=== PATIENT | female | born 1935 | race Caucasian/White ===

== ENCOUNTER 2018-04-12 00:26 | Outpatient (CLI) | payer MEDICARE ==
[2018-04-12 09:48] LABS: ALT (SGPT) 9 U/L (8-55); AST (SGOT) 17 U/L (5-34); Albumin 4.2 g/dL (3.4-4.8); Alkaline Phosphatase 68 U/L (40-150); Anion Gap 12 mmol/L (10-20); BUN (Urea Nitrogen) 27 mg/dL (9.8-20.1); Bilirubin, Direct 0.2 mg/dL (0.1-0.3); Bilirubin, Total 0.6 mg/dL (0.2-1.2); Calc. Creatinine Clearance 0 mL/min (70-130); Calcium 9.9 mg/dL (7.8-10.44); Carbon Dioxide 24 mmol/L (23-31); Chloride 108 mmol/L (98-107); Estimated GFR-MDRD 44; Globulin 2.8 g/dL (2.4-3.5); Glucose 108 mg/dL (83-110); Potassium 4.4 mmol/L (3.5-5.1); Sodium 140 mmol/L (136-145)
--- NOTE | 2018-04-12 17:06 | EKG ---
Test Reason : Blood Pressure : / mmHG Vent. Rate : 077 BPM Atrial Rate : 077 BPM P-R Int : 170 ms QRS Dur : 084 ms QT Int : 382 ms P-R-T Axes : 080 065 069 degrees QTc Int : 432 ms Normal sinus rhythm Normal ECG No previous ECGs available Confirmed by VINITA NEWBERRY ([id number]) on 04/12/2018 5:06:23 PM Referred By: RHOITH Confirmed By:VINITA NEWBERRY
== END 2018-04-12 00:27 | disposition home or self-care (01) ==
LOC: LABBT 00:26
PROVIDERS: ATTEND Internal Medicine Cardiovascular Disease
DX: Z01.818 Encounter for other preprocedural examination (principal); R94.39 Abnormal result of other cardiovascular function study
CPT/HCPCS: 80053; 80076; 93005; 93010

== ENCOUNTER 2018-04-13 05:57 | Day surgery (SDC) | payer MEDICARE ==
[2018-04-12 08:19] VITALS: BMI 18.1
[2018-04-13] MEDS ORDERED: Diazepam 5 MG TAB ONE (06:36)
[2018-04-13 06:56] LABS: #Eosinphils 0.2 thou/uL (0.0-0.7); #Lymphocytes 1.4 thou/uL (1.20-3.40); #Monocytes 0.5 thou/uL (0.11-0.59); #Neutrophils 2.6 thou/uL (1.40-6.50); %Basophils 0.6 % (0.0-1.0); %Eosinophils 3.6 % (0.0-10.0); %Lymphocytes 29.7 % (21.0-51.0); %Monocytes 10.2 % (0.0-10.0); %Neutrophils 55.9 % (42.0-75.0); Hemoglobin 10.7 g/dL (12.0-16.0); Mean Corpuscular HGB CONC 34.7 g/dL (32.0-36.0); Mean Corpuscular Hemoglobin 32.2 pg (27.0-31.0); Mean Corpuscular Volume 92.8 fL (78.0-98.0); Mean Platelet Volume 7.3 fL (7.4-10.4); Platelet Count 213 thou/uL (130-400); RBC Distribution Width 11.3 % (11.5-14.5); Red Blood Cell (RBC) Count 3.32 mill/uL (4.20-5.40); White Blood Cell (WBC) Count 4.6 thou/uL (4.8-10.8)
[2018-04-13 07:02] LABS: Cardiac Risk 2.7 (Less than 4.5)
[2018-04-13] MEDS ORDERED: Midazolam HCl 2 mg/2 ml Vial ONE (08:35)
[2018-04-13] MEDS ORDERED: Iopamidol 370 76% 100 ML VIAL ONE (09:32)
[2018-04-13] MEDS ORDERED: Acetaminophen/Codeine 30-300mg Tablet ONE ×2 (09:43→10:34)
== END 2018-04-13 13:50 | disposition home or self-care (01) ==
LOC: CCL 05:57
PROVIDERS: ATTEND Internal Medicine Cardiovascular Disease
PROC: 4A023N7 Measurement of Cardiac Sampling and Pressure, Left Heart, Percutaneous Approach (ICD-10-PCS; principal; 2018-04-13)
PROC: B2111ZZ Fluoroscopy of Multiple Coronary Arteries using Low Osmolar Contrast (ICD-10-PCS; 2018-04-13)
DX: I25.10 Atherosclerotic heart disease of native coronary artery without angina pectoris (principal); Z79.82 Long term (current) use of aspirin; Z79.899 Other long term (current) drug therapy
CPT/HCPCS: 36415; 80061; 85025; 93458; 99152; C1769; J1644; J2250; Q9967

== ENCOUNTER 2019-07-26 10:02 | Outpatient (CLI) | payer MEDICARE, OTHER ==
--- NOTE | 2019-07-26 11:37 | RAD ---
THORACOLUMBAR SPINE 2 VIEWS: Date: 07/18/2019 HISTORY: Low back pain, scoliosis. FINDINGS: S-shaped scoliosis. Severe multilevel disc osteophytosis and facet arthrosis. 38 degree levoscoliosis of the lumbar vertebral column. 19 degree dextroscoliosis of the lower thoracic vertebral column. IMPRESSION: 1. Significant scoliosis as above. 2. Severe spondylosis. POS: [facility]
== END 2019-07-26 10:03 | disposition home or self-care (01) ==
LOC: SCSRAD 10:02
PROVIDERS: ATTEND Orthopaedic Surgery Hand Surgery
DX: M54.5 Low back pain (principal); M41.9 Scoliosis, unspecified; M47.815 Spondylosis without myelopathy or radiculopathy, thoracolumbar region
CPT/HCPCS: 72080

== ENCOUNTER 2019-10-29 06:10 | Outpatient (CLI) | payer MEDICARE, OTHER ==
[2019-10-29 14:23] LABS: #Lymphocytes 0.9 thou/uL (1.20-3.40); #Monocytes 0.2 thou/uL (0.11-0.59); #Neutrophils 4.5 thou/uL (1.40-6.50); %Basophils 0.1 % (0.0-1.0); %Eosinophils 0.5 % (0.0-10.0); %Monocytes 3.4 % (0.0-10.0); Hemoglobin 11.5 g/dL (12.0-16.0); Mean Corpuscular Hemoglobin 32.8 pg (27.0-31.0); Mean Corpuscular Volume 96.4 fL (78.0-98.0); Mean Platelet Volume 7.8 fL (7.4-10.4); Platelet Count 229 thou/uL (130-400); RBC Distribution Width 11.5 % (11.5-14.5); Red Blood Cell (RBC) Count 3.52 mill/uL (4.20-5.40); White Blood Cell (WBC) Count 5.7 thou/uL (4.8-10.8)
[2019-10-29 14:47] LABS: Bacteria/HPF 4+ HPF (None Seen); Bilirubin Negative (Negative); Blood, Urine Negative (Negative); Clarity Clear (Clear); Glucose, Urine (Dipstick) Normal (Negative); Ketone, Urine Negative (Negative); Leukocyte Negative Leu/uL (Negative); Nitrite 2+ (Negative); Protein, Urine (Dipstick) Negative (Neg-Trace); RBC/HPF 0-3 HPF (0-3); Specific Gravity, Urine 1.013 (1.002-1.036); Urobilinogen Normal mg/dL (Less than 2); WBC/HPF 0-3 HPF (0-3); pH, Urine 5.5 (5.0-9.0)
[2019-10-29 14:55] LABS: Anion Gap 17 mmol/L (10-20); BUN (Urea Nitrogen) 43 mg/dL (9.8-20.1); Calc. Creatinine Clearance 0 mL/min (70-130); Calcium 9.5 mg/dL (7.8-10.44); Carbon Dioxide 22 mmol/L (23-31); Chloride 106 mmol/L (98-107); Estimated GFR-MDRD 38; Glucose 121 mg/dL (83-110); Potassium 4.5 mmol/L (3.5-5.1); Sodium 140 mmol/L (136-145)
[2019-10-30 13:23] LABS: SARS-CoV-2 MS2 Positive; SARS-CoV-2 N Gene Negative; SARS-CoV-2 S Gene Negative; SARS-CoV-2 by NAA Not Detected (NotDetected); SARS-CoV-2 orf1ab Negative
== END 2019-10-29 06:11 | disposition home or self-care (01) ==
LOC: LABBT 06:10
PROVIDERS: ATTEND Orthopaedic Surgery Hand Surgery
DX: Z01.818 Encounter for other preprocedural examination (principal); Z20.828 Contact with and (suspected) exposure to other viral communicable diseases; M19.042 Primary osteoarthritis, left hand
CPT/HCPCS: 80048; 81001; 85025; 93005; U0003; 87635; 93010

== ENCOUNTER 2019-11-02 05:44 | Inpatient (IN) | payer MEDICARE, OTHER ==
[2019-10-30 14:09] VITALS: BMI 15.6
[2019-11-02] MEDS ORDERED: Midazolam HCl 2 mg/2 ml Vial ONE (06:38)
[2019-11-02] MEDS ORDERED: Fentanyl 100 MCG/2 ML VIAL ONE ×2 (06:38→07:25)
[2019-11-02] MEDS ORDERED: Sodium Chloride 0.9% 10 ML ONE (06:41)
[2019-11-02] MEDS ORDERED: Bacitracin Zinc Ointment 30 gm TUBE ONE (06:41)
[2019-11-02] MEDS ORDERED: Bupivacaine PF 0.5% 30 ML VIAL ONE (06:41)
[2019-11-02] MEDS ORDERED: Betamet Acet/Betamet Na Ph 30 MG/5 ML VIAL ONE (06:41)
[2019-11-02] MEDS ORDERED: Morphine 2 MG/ML VIAL SLOW IVP PRN (07:24)
[2019-11-02] MEDS ORDERED: Ondansetron PF 4 MG/2 ML Vial SLOW IVP PRN (07:24)
[2019-11-02] MEDS ORDERED: Promethazine HCl 25 MG/ML VIAL IM PRN ×2 (07:24→12:49)
[2019-11-02] MEDS ORDERED: HYDROcodone/Acetaminophen 10/325 mg Tablet PO PRN (07:24)
[2019-11-02] MEDS ORDERED: Milk Of Magnesia 30 ML UDCUP PO PRN (07:24)
[2019-11-02] MEDS ORDERED: PHARMACY TO RENALLY ADJUST ABX FS SCH (07:30)
[2019-11-02] MEDS ORDERED: TETANUS AND DIPHTHERIA TOX/PF 0.5 ML DISP.SYRIN IM SCH (07:30)
[2019-11-02] MEDS ORDERED: Ondansetron HCl/PF 4 MG/2 ML Vial IVP PRN (12:49)
[2019-11-02] MEDS ORDERED: Promethazine HCl 25 MG/ML VIAL SLOW IVP PRN (12:49)
--- NOTE | 2019-11-02 12:55 | RAD ---
EXAM: XR Hand Lt 2 View PROVIDED CLINICAL HISTORY: Arthroplasty COMPARISON: None FINDINGS: Multiple spot fluoroscopic images of the left hand were obtained by Dr. Squires during the course of MCP arthroplasty. IMPRESSION: As above.
[2019-11-02] MEDS ORDERED: EPHEDRINE 25 MG/5 ML SYRINGE ONE (13:58)
[2019-11-02] MEDS ORDERED: Bupivacaine HCl 0.5%/Epinephrine 1:200,000/PF 30 ml Vial ONE (13:58)
[2019-11-02] MEDS ORDERED: PHENYLEPHRINE-NS 100 MCG/ML 10 ML SYRINGE ONE (13:58)
[2019-11-02] MEDS ORDERED: PROPOFOL 200 MG/20 ML VIAL ONE (13:58)
[2019-11-02] MEDS: Aspirin 81 mg Enteric Coated Tablet PO SCH ×2 (14:25→21:09)
[2019-11-02] MEDS: traMADol HCl 50 MG TAB PO PRN (18:36)
[2019-11-02] MEDS ORDERED: Rosuvastatin 10 MG TAB PO SCH (21:00)
[2019-11-02] MEDS: Cholecalciferol 1,000 UNITS (25 MCG) TAB PO SCH (21:11)
[2019-11-03] MEDS: traMADol HCl 50 MG TAB PO PRN ×2 (02:41→09:38)
[2019-11-03 05:30] LABS: #Eosinphils 0.1 thou/uL (0.0-0.7); #Lymphocytes 0.9 thou/uL (1.20-3.40); #Monocytes 0.8 thou/uL (0.11-0.59); %Basophils 0.2 % (0.0-1.0); %Eosinophils 0.9 % (0.0-10.0); %Lymphocytes 13.4 % (21.0-51.0); %Monocytes 11.2 % (0.0-10.0); %Neutrophils 74.3 % (42.0-75.0); Hemoglobin 10.6 g/dL (12.0-16.0); Mean Corpuscular HGB CONC 35.1 g/dL (32.0-36.0); Mean Corpuscular Hemoglobin 34.5 pg (27.0-31.0); Mean Corpuscular Volume 98.1 fL (78.0-98.0); Mean Platelet Volume 7.3 fL (7.4-10.4); Platelet Count 186 thou/uL (130-400); RBC Distribution Width 11.4 % (11.5-14.5); Red Blood Cell (RBC) Count 3.06 mill/uL (4.20-5.40); White Blood Cell (WBC) Count 6.8 thou/uL (4.8-10.8)
[2019-11-03] MEDS ORDERED: predniSONE 5 MG TAB PO SCH (08:00)
[2019-11-03] MEDS ORDERED: Lidocaine 5% Patch TD SCH (09:00)
[2019-11-03] MEDS: Aspirin 81 mg Enteric Coated Tablet PO SCH (09:36)
[2019-11-03] MEDS: Cholecalciferol 1,000 UNITS (25 MCG) TAB PO SCH (09:37)
[2019-11-03 15:37] VITALS: BP 118/69; TEMP 98.4
[2019-11-03] MEDS ORDERED: Lidocaine Patch Removal 1 EACH TOP SCH (21:00)
--- NOTE | 2019-11-04 13:20 | OP ---
DATE OF PROCEDURE: 11/02/2019 PREOPERATIVE DIAGNOSES: Left small finger, ring finger, middle finger, index finger at the metacarpophalangeal joint with the following deformities, 1. 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 2. Metacarpophalangeal joint dislocation, palmar and ulnar. 3. Subluxation of extensor tendon ulnarly with locked joint in flexion. 4. Tight ulnar collateral ligament and ulnar capsule. 5. Tight ulnar intrinsics. 6. Lax radial collateral ligament. 7. Lax radial intrinsics and capsule. POSTOPERATIVE DIAGNOSES: Left small finger, ring finger, middle finger, index finger at the metacarpophalangeal joint with the following deformities, 1. 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 2. Metacarpophalangeal joint dislocation, palmar and ulnar. 3. Subluxation of extensor tendon ulnarly with locked joint in flexion. 4. Tight ulnar collateral ligament and ulnar capsule. 5. Tight ulnar intrinsics. 6. Lax radial collateral ligament. 7. Lax radial intrinsics and capsule. PROCEDURES PERFORMED: 1. Ulnar intrinsic release. 2. Volar capsulectomy, metacarpophalangeal joint. 3. Radial collateral ligament reconstruction. 4. Extensor tendon and mechanism along with extensor moreno centralization. 5. Metacarpophalangeal joint silicone arthroplasty using Saeed Yoandy [place] implants. 6. Metacarpophalangeal joint silastic arthroplasty, Saeed Pelliano [place] implant. 7. C-arm supervision. All six of the procedures took place in sequential order at the index finger, middle finger, ring finger, and small finger with the sizes being Saeed Yoandy [place] silastic implant, size 4 index, 5 middle finger, 4 ring finger, and 3 small finger. Each finger had all six performed including C-arm for each finger. SPECIMEN REMOVED: The head of metacarpals not sent to the lab. ESTIMATED BLOOD LOSS: 25 mL. TOURNIQUET TIME: 127 minutes elevated, 45 minutes down, and 51 minutes up, all at 250 mmHg pressure. INDICATIONS FOR PROCEDURE: The patient had dislocated metacarpophalangeal joints, tight ulnar intrinsics, subluxation of the central slip and dislocations of the extensor moreno ulnarly as well as the erosive osteoarthritis. She failed conservative treatment. Indeed, in the office, it was difficult to even get the small, ring and middle finger to extend passively. DESCRIPTION OF PROCEDURE: After successful general endotracheal anesthesia, the limb was prepped and draped, it was the left upper extremity. The patient already had blocks. We did not augment this with anesthetic agent because she had an excellent block clinically. We then outlined longitudinal incisions with the index finger being slightly curved radially at the prominence of metacarpophalangeal head and the middle finger being curved slightly radially as well, while the ring finger was direct dorsal and the small finger was curved slightly ulnarly from the dorsal side. We first approached the index finger and carried the incision through skin and subcutaneous tissue. We quickly found the dislocated extensor mechanism, released it completely with the release of the tight extensor mechanism, and an ulnar intrinsic release all the way to the level of the mid proximal phalanx. We then visualized the radial side, which was lax of the proximal intrinsics as well as the extensor moreno, incised this approximately 3 or 4 mm from the extensor tendon radial aspect, made sure we had enough ulnar release to centralize the tendon manually, and then tagged the extensor mechanism for later closure on both sides with advancement in [id number] manner. We released the capsule completely until we could see the reflection of the collateral ligaments. We released the tight capsule on the ulnar side as well as prepared radial side. We then brought a sagittal saw onto the field, made a shotgun flexion of the metacarpophalangeal joint. It was here we saw an 80% erosion of the metacarpal head and flattening with erosive changes of the base of the proximal phalanx. We made the standard distal and then deep palmar cut of the metacarpal head and then at the base of the proximal phalanx, made a 1 mm cut with sagittal saw to remove chondral bone. opened the canal with a maty and began with our broaching. The broach was found on the C-arm being in central position for both the distal and proximal aspect of the joint broaching, we began broaching with a two proximal and a two distal, which had excellent fit with room to spare and had no violation of cortex by clinical or by radiographic assessment. We then used a 3 proximal and then a 3 distal area interosseous broach and then sequentially 4 until we found that the 4 had slight difficulty in chatter completely being seated, so we knew this would be the appropriate size. We completed the burring of the open space proximally to get the 3 and the size 4 to fit, trialed with a size 4 and found an excellent fit. We then tagged the collateral ligament on the radial side with [place] running 4-0 Prolene suture, drilled a hole on the radial side, shortened the radial collateral and then passed the Prolene through this and at this point with the MP joint very freely , we were able to obtain good purchase of this reconstruction. Before we tied this, however, we performed a release with the tenotomy scissors and a small amount of [place] blade of the entire volar capsular integrity and the volar plate was loose and no longer deformity . Since the 4 Saeed Yoandy [place] silastic implant fit in appropriate orientation, with a trial, we then took the final components, soaked 1 minute in normal saline and placed it in the area of the index finger MP joint arthroplasty bony cuts and it fit without abnormality. We then brought the finger into 0 extension and saw that there was appropriate tension with no instability. At this point, we completed the arthroplasty here. We now closed the capsule loosely with 3-0 Vicryl undyed in a simple pattern. We performed the centralization of the extensor tendon using six 4-0 Prolene, RB-1 needle, performed in a [id number] closure after removing some of the redundant tissue longitudinally in this radial side setup. We then tied these, flexed the joint to 90 degrees, saw the flexor tendon was intact with tenodesis even after releasing the volar capsule, and could have proceeded with skin closure at this point, but we knew we had to perform the other three digits. We then performed a mirror image procedure in the mirror image steps as listed above until we had both replaced with a size 5 for the MP joint of the middle finger, a size 4 for the MP joint of the ring finger, and a size 3 for the MP joint of the small finger. All were in balance nearly perfectly and there was no evidence of anesthetic or operative complication. Tourniquet had been reinflated between the ring finger and the small finger, that was after 45 minutes of being down and this was plenty of time for appropriate surgical steps. Tourniquet was finally released, we obtained hemostasis, we tied all the extensor reconstructions, and finished the closure as per the ring finger. Bulky dressing applied along with a splint and the patient left the operating room without evidence of anesthetic or operative complication. Job ID: [id number]
== END 2019-11-03 15:50 | disposition home or self-care (01) | DRG 506 ==
LOC: SDC 05:44 → EEVIPCON 07:34 → SURG A 07:34
PROVIDERS: ADMIT Orthopaedic Surgery Hand Surgery; ATTEND Orthopaedic Surgery Hand Surgery
PROC: 0RRV0JZ Replacement of Left Metacarpophalangeal Joint with Synthetic Substitute, Open Approach (ICD-10-PCS; principal; 2019-11-02)
PROC: 0RBV0ZZ Excision of Left Metacarpophalangeal Joint, Open Approach (ICD-10-PCS; 2019-11-02)
PROC: 01N40ZZ Release Ulnar Nerve, Open Approach (ICD-10-PCS; 2019-11-02)
DX: M15.4 Erosive (osteo)arthritis (principal); S63.268A Dislocation of metacarpophalangeal joint of other finger, initial encounter; J44.9 Chronic obstructive pulmonary disease, unspecified; E78.5 Hyperlipidemia, unspecified; S63.213A Subluxation of metacarpophalangeal joint of left middle finger, initial encounter; S63.217A Subluxation of metacarpophalangeal joint of left little finger, initial encounter; X58.XXXA Exposure to other specified factors, initial encounter; M20.092 Other deformity of left finger(s); Z98.49 Cataract extraction status, unspecified eye; Z79.899 Other long term (current) drug therapy; Z79.82 Long term (current) use of aspirin; Z79.52 Long term (current) use of systemic steroids
CPT/HCPCS: 36415; 76000; 85025; C1776; J0670; J0690; J0702; J2250; J2405; J2704; J3010; J3490; J7512; S0020

== ENCOUNTER 2019-12-12 12:58 | Emergency (ER) | payer MEDICARE ==
[2019-12-12 15:57] LABS: #Eosinphils 0.1 thou/uL (0.0-0.7); #Lymphocytes 1.3 thou/uL (1.20-3.40); %Basophils 0.1 % (0.0-1.0); %Lymphocytes 12.3 % (21.0-51.0); %Monocytes 9.6 % (0.0-10.0); %Neutrophils 76.9 % (42.0-75.0); Hemoglobin 10.8 g/dL (12.0-16.0); Mean Corpuscular HGB CONC 35.6 g/dL (32.0-36.0); Mean Corpuscular Volume 95.6 fL (78.0-98.0); Mean Platelet Volume 7.1 fL (7.4-10.4); Platelet Count 239 thou/uL (130-400); RBC Distribution Width 11.6 % (11.5-14.5); Red Blood Cell (RBC) Count 3.16 mill/uL (4.20-5.40); White Blood Cell (WBC) Count 10.4 thou/uL (4.8-10.8)
[2019-12-12 16:17] LABS: ALT (SGPT) 12 U/L (8-55); AST (SGOT) 14 U/L (5-34); Albumin 3.5 g/dL (3.4-4.8); Alkaline Phosphatase 59 U/L (40-110); Anion Gap 14 mmol/L (10-20); BUN (Urea Nitrogen) 23 mg/dL (9.8-20.1); Calc. Creatinine Clearance 0 mL/min (70-130); Calcium 8.6 mg/dL (7.8-10.44); Carbon Dioxide 22 mmol/L (23-31); Chloride 105 mmol/L (98-107); Estimated GFR-MDRD 44; Globulin 2.8 g/dL (2.4-3.5); Glucose 93 mg/dL (83-110); Lipase 4 U/L (8-78); Potassium 4.1 mmol/L (3.5-5.1); Protein, Total 6.3 g/dL (6.0-8.3); Sodium 137 mmol/L (136-145)
[2019-12-12 16:24] LABS: Bilirubin, Total 0.3 mg/dL (0.2-1.2)
[2019-12-12] MEDS ORDERED: Ondansetron PF 4 MG/2 ML Vial ONE (16:37)
[2019-12-12] MEDS ORDERED: Morphine 4 MG/ML VIAL ONE (16:37)
--- NOTE | 2019-12-15 16:29 | EKG ---
Test Reason : Blood Pressure : / mmHG Vent. Rate : 074 BPM Atrial Rate : 074 BPM P-R Int : 162 ms QRS Dur : 086 ms QT Int : 378 ms P-R-T Axes : 104 061 066 degrees QTc Int : 419 ms Sinus rhythm with Premature atrial complexes Otherwise normal ECG Confirmed by STEFFI COLE DO ([id number]), communications editor CECE VYAS ([id number]) on 12/15/2019 4:29:15 PM Referred By: Confirmed By:STEFFI CLOE DO
== END 2019-12-12 17:10 | disposition home or self-care (01) ==
LOC: ERS 12:58
DX: R19.7 Diarrhea, unspecified (principal); M54.9 Dorsalgia, unspecified
CPT/HCPCS: 80053; 83690; 84484; 85025; 93005; 96374; 96375; J2270; J2405

== ENCOUNTER 2019-12-15 08:48 | Inpatient (IN) | payer MEDICARE, OTHER ==
[2019-12-15] MEDS ORDERED: Acetaminophen 500 MG TAB ONE (09:30)
[2019-12-15 09:57] LABS: Bacteria/HPF 4+ HPF (None Seen); Bilirubin Negative (Negative); Blood, Urine 1+ (Negative); Glucose, Urine (Dipstick) Normal (Negative); Ketone, Urine Negative (Negative); Leukocyte Negative Leu/uL (Negative); Nitrite Negative (Negative); Protein, Urine (Dipstick) 30 mg/dL (Neg-Trace); RBC/HPF 0-3 HPF (0-3); Specific Gravity, Urine 1.021 (1.002-1.036); Squamous Epithelial None Seen HPF (0-3); Urobilinogen Normal mg/dL (Less than 2); WBC/HPF 0-3 HPF (0-3); pH, Urine 5.5 (5.0-9.0)
[2019-12-15 10:02] LABS: Clarity Hazy (Clear)
--- NOTE | 2019-12-15 10:05 | RAD ---
EXAM: Chest one view: HISTORY: Tachycardia COMPARISON: 12/14/2019 FINDINGS: Stable appearing chronic changes bilaterally. Heart size: Within normal limits. Lungs: Clear of acute process. No evidence for confluent lobar pneumonia, significant pleural effusion, acute edema, or pneumothorax , or other significant acute process. IMPRESSION: No significant acute intrathoracic disease. Atherosclerosis of the aorta.
[2019-12-15 10:42] LABS: Band 9 % (5-11); Hemoglobin 9.9 g/dL (12.0-16.0); Lymphocytes 2 % (21-51); MDiff Complete? YES; Mean Corpuscular HGB CONC 35.8 g/dL (32.0-36.0); Mean Corpuscular Hemoglobin 34.5 pg (27.0-31.0); Mean Corpuscular Volume 96.3 fL (78.0-98.0); Mean Platelet Volume 6.8 fL (7.4-10.4); Monocytes 2 % (0-10); Neutrophil 87 % (42-75); Platelet Count 251 thou/uL (130-400); RBC Distribution Width 11.5 % (11.5-14.5); Red Blood Cell (RBC) Count 2.86 mill/uL (4.20-5.40); White Blood Cell (WBC) Count 22.9 thou/uL (4.8-10.8)
[2019-12-15] MEDS ORDERED: metroNIDAZOLE 500 MG/100 ML BAG ONE (10:44)
[2019-12-15] MEDS ORDERED: Cefepime 2 GM VIAL ONE (10:44)
[2019-12-15 10:46] LABS: ALT (SGPT) 10 U/L (8-55); AST (SGOT) 10 U/L (5-34); Albumin 2.6 g/dL (3.4-4.8); Alkaline Phosphatase 62 U/L (40-110); Anion Gap 13 mmol/L (10-20); BUN (Urea Nitrogen) 20 mg/dL (9.8-20.1); Bilirubin, Total 0.6 mg/dL (0.2-1.2); Calc. Creatinine Clearance 0 mL/min (70-130); Calcium 7.4 mg/dL (7.8-10.44); Carbon Dioxide 20 mmol/L (23-31); Chloride 105 mmol/L (98-107); Estimated GFR-MDRD 54; Globulin 2.1 g/dL (2.4-3.5); Glucose 108 mg/dL (83-110); Lipase Less than 4 U/L (8-78); Potassium 4.1 mmol/L (3.5-5.1); Protein, Total 4.7 g/dL (6.0-8.3); Sodium 134 mmol/L (136-145)
[2019-12-15 11:07] LABS: CKMB 2.9 ng/mL (0-6.6)
--- NOTE | 2019-12-15 12:02 | CT ---
EXAM: Abdomen and pelvic CT scan with contrast: HISTORY: Diarrhea abdominal distention COMPARISON: None FINDINGS: Lungs:Small bilateral pleural effusions as well as bilateral pleural-based linear parenchymal changes . Liver: Evidence for minimal periportal edema. Gallbladder:Multiple gallstones without overt gallbladder wall thickening or focal pericholecystic fa t stranding. Common bile duct:Dilated common bile duct at 1.1 cm without significant intrahepatic ductal dilatatio n. Pancreas:Minimal pancreatic duct dilatation. Spleen:Unremarkable. Adrenal glands:Unremarkable. Kidneys:No evidence for renal calculus or obstruction. Evidence for bilateral renal cysts. Very severe diffuse colonic wall thickening and edematous changes throughout the entire colon from re ctum to cecum evidence for nonspecific diffuse colitis. Aorta:No evidence for aortic aneurysm. Spine:No significant acute process. No CT evidence for acute appendicitis. The urinary bladder is unremarkable. Reproductive system:Unremarkable as visualized. Hernias:None Fairly extensive ascites and intraperitoneal fluid throughout the abdomen and pelvis. IMPRESSION: Evidence for severe diffuse colonic wall thickening and edematous changes of the entire colon from re ctum to cecum certainly raising concern for the possibility of acute diffuse colitis. Moderate free intraperitoneal fluid. Cholelithiasis without acute cholecystitis. Minimal dilatation of the common bile duct and pancreatic duct. Minimal hepatic periportal edema Other findings as above..
[2019-12-15] MEDS ORDERED: Aspirin 325 MG TAB ONE (12:17)
--- NOTE | 2019-12-15 13:06 | PDOC.HHP ---
Hospitalist HPI - History of Present Illness Persistent diarrhea History of Present Illness: This is an 84-year-old female patient with a history of chronic back pain secondary to osteoarthritis, recent surgery on her knuckles, atrial fibrillation, who presents with persistent diarrhea and abdominal pain for 2 weeks. Of note she was in the ED a couple of days ago for diarrhea and back pain and was discharged. She had surgery on her left knuckles on 11/02/2019 on account of erosive osteoarthritis. Daughter notes she received antibiotics but is unable to tell the name. After discharge however 2 weeks ago she did develop and diarrhea with abdominal pain and increasing weakness. She denied any associated fever nausea vomiting. Her daughter went to pick him up from [place] to stay with her so that she could monitor her closely. She became so weak she was unable to walk that led to the first ED visit. Given the persistent abdominal pain and diarrhea she presents again today. She also notes that she noted some kind of prolapse from the rectal region however this was not evident at presentation. Labs showed WBC of 22.9, hemoglobin of 9.9, platelet count 251, UA showed 4+ bacteria and 30 mg/dL protein, CBC showed sodium of 134 and bicarb of 20, lipase was less than 4, troponin was 0.065 However labs are positive for C. difficile. CT abdomen showed small bilateral pleural effusion, very severe colonic wall thickening and edematous changes throughout the entire colon. At presentation her blood pressure was 102/65 however her maps intermittently goes below 65. Pulse ox 104, temperature 99 and saturating at room air at 98%. She received 1 L in route by EMS and also 2 L here to get a total of 3 L. She also received aspirin for elevated troponin, cefepime and metronidazole as well as vancomycin. Hospitalist team was consulted for admission. Hospitalist ROS - Review of Systems Constitutional: denies: fever, chills, sweats Respiratory: denies: cough, shortness of breath, hemoptysis Cardiovascular: denies: chest pain, palpitations, orthopnea, paroxysmal noc. dy spnea Gastrointestinal: reports: abdominal pain, diarrhea. denies: nausea, vomiting Genitourinary: denies: dysuria, frequency, incontinence Musculoskeletal: reports: back pain. denies: neck pain, shoulder pain, arm pain Neurological: denies: weakness, numbness, incoordination Hospitalist History - Past Medical History Cardiac: reports: AFIB - Past Surgical History Past Surgical History: reports: no pertinent history - Social History Smoking Status: Never smoker Alcohol: reports: None Living Situation: With Family - Exam General Appearance: awake alert, ill appearing Eye: PERRL, anicteric sclera Heart: RRR, no murmur, no gallops, no rubs Respiratory: CTAB, no wheezes, no rales, no ronchi, no tachypnea Gastrointestinal - other findings: Slightly distended, no tenderness or rebound tenderness. Normal bowel soun Extremities: no cyanosis, no clubbing, no edema Neurological: cranial nerve grossly intact, no weakness Psychiatric: normal behavior, A&O x 3 Hospitalist Results - Labs Result Diagrams: 12/15/19 09:53 12/15/19 09:53 Lab results: WBC 22.9 thou/uL (4.8-10.8) H 12/15/19 09:53 Hgb 9.9 g/dL (12.0-16.0) L 12/15/19 09:53 Hct 27.6 % (36.0-47.0) L 12/15/19 09:53 MCV 96.3 fL (78.0-98.0) 12/15/19 09:53 Plt Count 251 thou/uL (130-400) 12/15/19 09:53 Band Neuts % (Manual) 9 % (5-11) 12/15/19 09:53 Sodium 134 mmol/L (136-145) L 12/15/19 09:53 Potassium 4.1 mmol/L (3.5-5.1) 12/15/19 09:53 Chloride 105 mmol/L (98-107) 12/15/19 09:53 Carbon Dioxide 20 mmol/L (23-31) L 12/15/19 09:53 BUN 20 mg/dL (9.8-20.1) 12/15/19 09:53 Creatinine 0.97 mg/dL (0.6-1.1) 12/15/19 09:53 Glucose 108 mg/dL (83-110) 12/15/19 09:53 Lactic Acid 1.2 mmol/L (0.5-2.2) 12/15/19 09:53 Calcium 7.4 mg/dL (7.8-10.44) L 12/15/19 09:53 Total Bilirubin 0.6 mg/dL (0.2-1.2) 12/15/19 09:53 AST 10 U/L (5-34) 12/15/19 09:53 ALT 10 U/L (8-55) 12/15/19 09:53 Alkaline Phosphatase 62 U/L (40-110) 12/15/19 09:53 CK-MB (CK-2) 2.9 ng/mL (0-6.6) 12/15/19 09:53 Troponin I 0.065 ng/mL (< 0.028) H 12/15/19 09:53 Serum Total Protein 4.7 g/dL (6.0-8.3) L 12/15/19 09:53 Albumin 2.6 g/dL (3.4-4.8) L 12/15/19 09:53 Lipase Less than 4 U/L (8-78) L 12/15/19 09:53 Urine Ketones Negative mg/dL (Negative) 12/15/19 09:33 Urine Blood 1+ (Negative) A 12/15/19 09:33 Urine Nitrite Negative (Negative) 12/15/19 09:33 Ur Leukocyte Esterase Negative Aj/uL (Negative) 12/15/19 09:33 Urine RBC 0-3 HPF (0-3) 12/15/19 09:33 Urine WBC 0-3 HPF (0-3) 12/15/19 09:33 Ur Squamous Epith Cells None Seen HPF (0-3) 12/15/19 09:33 Urine Bacteria 4+ HPF (None Seen) A 12/15/19 09:33 Hospitalist H&P A/P - Plan Plan: This is an 84-year-old female patient with a history of A. fib, CHF and osteoarthritis status post left knuckle replacement presenting with persistent diarrhea positive for C. difficile. Sepsis Elevated WBC, tachycardia, hypotension Source GIT setting of C. difficile Received 3 L normal saline We will continue IV fluids Treatment for C. difficile Lactate was within normal We will continue monitoring. fulminant C. difficile colitis WBC 22.9 with hypotension Recent surgery for antibiotic administration Start oral vancomycin, continue metronidazole IV N.p.o. for now Consult GI A. fib Not on anticoagulation Not in RVR Given her unstable state to monitor in telemetry. Osteoarthritis As needed medications next CODE STATUSDNR DVT prophylaxisSCD
[2019-12-15] MEDS ORDERED: Vancomycin HCl 25 MG/ML Oral PO SCH (14:00)
[2019-12-15] MEDS ORDERED: Iopamidol-370 76% 500 ML 1 ML ONE (14:24)
[2019-12-15 14:29] LABS: Troponin I 0.018 ng/mL (< 0.028)
[2019-12-15] MEDS: Sodium Chloride 0.9% 1,000 ML IV SCH ×2 (17:20→19:43)
[2019-12-15] MEDS: Vancomycin HCl 25 MG/ML Oral PO SCH ×2 (17:22→22:23)
[2019-12-15 17:35] LABS: Troponin I 0.013 ng/mL (< 0.028)
[2019-12-15] MEDS ORDERED: HYDROcodone/Acetaminophen 5/325 mg Tablet PO SCH (18:00)
[2019-12-15] MEDS ORDERED: Midodrine HCl 5 MG TAB PO SCH (18:00)
--- NOTE | 2019-12-15 18:11 | CON ---
DATE OF CONSULTATION: REASON FOR CONSULTATION: C diff colitis. HISTORY OF PRESENT ILLNESS: Ms. Moyer is an 84-year-old female who had presented to the emergency room today with a week's worth of diarrhea. Apparently, she was found to be quite dehydrated in the emergency room and given a liter of fluid. She had a CAT scan that showed severe diffuse colonic wall thickening throughout the colon from the rectum to the cecum. White count 22,000, hemoglobin of 9, and platelet count of 251. BUN and creatinine of 20 and 0.9 with albumin of 2.6 with a protein of 4.7. Stool studies were done and showed C diff. Her history is notable for the fact that she had a hand surgery back in October. She was on antibiotics for several weeks after that. A week or two after that finished, she began to have the diarrhea. She was in the emergency room earlier this week on Tuesday and they gave her some fluid for hydration. She was to follow with her PCP; however, she continued to worsen and her daughter brought her back today and the C diff was diagnosed. The patient's daughter notes that she has been a little bit more somnolent, not eating well today and she is really very easily quite active up and around, but she has been a little bit confused even. PAST MEDICAL HISTORY: History of atrial fibrillation in the past. PAST SURGICAL HISTORY: None. SOCIAL HISTORY: Negative for smoking, alcohol, or drugs. She lives with her family and is usually quite active. REVIEW OF SYSTEMS: Unable to really obtain as the patient is pretty sleepy right now, but arousable. She does laugh when I made a smart Jose Ramon remark and seems to recognize her daughter. She denies confusion. She denies pain. MEDICATIONS: At home, 1. Prednisone. 2. Bactrim. 3. Rosuvastatin. 4. Ranexa. 5. Zofran. 6. Lidoderm. 7. Vascepa. 8. Hydrocodone. 9. Calciferol. Medications here, 1. Tylenol 3 p.r.n. 2. Lidocaine patch. 3. Metronidazole 500 mg IV q.8 hours. 4. Vancomycin oral. 5. Normal saline at 125 an hour. PHYSICAL EXAMINATION: VITAL SIGNS: Temperature 98.4, pulse 86, blood pressure 118/69. GENERAL: She is resting in bed in her side. HEENT: Her mouth is dry. Mucous membranes are dry. Mucosa is somewhat pale. LUNGS: Clear. HEART: She is mildly tachycardic with heart rate in the 90s. This seems to be regular. ABDOMEN: Some scant bowel sounds. There is no rebound or guarding. She is mildly protuberant. EXTREMITIES: Show no clubbing, cyanosis, or edema. IMAGING STUDIES: Review of the CT scan films shows no signs of toxic megacolon. ASSESSMENT: Severe Clostridium difficile colitis with a white count of 22,000. Symptoms are worsening over the past week. Probably significant dehydration as well and she has had a significant drop in albumin level probably with protein wasting from severe colitis in her colon. RECOMMENDATIONS: 1. Agree with aggressive fluid resuscitation. We will check magnesium and phosphorus tomorrow morning and replace those as necessary. 2. If albumin drops below 2.5, I would give her some IV albumin. 3. Agree with vancomycin 500 mg q.i.d. and agree with IV Flagyl as well. I think she will probably respond and turn around fairly quickly with this. I will start her on liquid diet. We will follow along with you. Job ID: [id number]
[2019-12-15] MEDS ORDERED: Norepinephrine 8 MG/0.9% NS 250 ML IVPB SCH (18:15)
[2019-12-15 18:31] VITALS: BP 89/54
--- NOTE | 2019-12-15 18:54 | PDOC.BPN ---
- Brief Progress Note Encounter Date: 12/15/19 Encounter Time: 18:53 As notified by patient's nurse that her blood pressure was trending downwards. Pressures went as low as 79/52 and after 1 L bolus normal saline at 89/54 We are transferring her to CCU for IV pressors. To notify pulmonology
--- NOTE | 2019-12-15 22:08 | PDOC.FMACP ---
Advance Care Planning - Note Summary: Advanced Care Planning was discussed. The diagnosis, prognosis and goals of care were discussed. Patient is DNR. Daughter is surrogate decision-maker. Daughter was around during discussion
[2019-12-15] MEDS: Midodrine HCl 5 MG TAB PO SCH (22:22)
[2019-12-15] MEDS: metroNIDAZOLE 500 MG in Premix Bag 1 BAG IVPB SCH (22:22)
[2019-12-15] MEDS: Acetaminophen/Codeine 30-300mg Tablet PO SCH (22:22)
[2019-12-15] MEDS: Lidocaine 5% Patch TD SCH (22:26)
[2019-12-16] MEDS: metroNIDAZOLE 500 MG in Premix Bag 1 BAG IVPB SCH ×3 (03:51→20:21)
[2019-12-16] MEDS: Vancomycin HCl 25 MG/ML Oral PO SCH ×4 (03:51→20:22)
[2019-12-16 03:53] LABS: ALT (SGPT) 11 U/L (8-55); AST (SGOT) 12 U/L (5-34); Albumin 2.1 g/dL (3.4-4.8); Alkaline Phosphatase 63 U/L (40-110); Anion Gap 15 mmol/L (10-20); BUN (Urea Nitrogen) 22 mg/dL (9.8-20.1); Bilirubin, Total 0.3 mg/dL (0.2-1.2); Calc. Creatinine Clearance 39 mL/min (70-130); Calcium 7.3 mg/dL (7.8-10.44); Carbon Dioxide 13 mmol/L (23-31); Chloride 111 mmol/L (98-107); Estimated GFR-MDRD 59; Globulin 2.3 g/dL (2.4-3.5); Glucose 88 mg/dL (83-110); Magnesium 1.5 mg/dL (1.6-2.6); Phosphorus 4.1 mg/dL (2.3-4.7); Potassium 4.1 mmol/L (3.5-5.1); Protein, Total 4.4 g/dL (6.0-8.3); Sodium 135 mmol/L (136-145)
[2019-12-16 04:30] LABS: Band 16 % (5-11); Eosinophils 1 % (0-10); Hemoglobin 11.3 g/dL (12.0-16.0); Lymphocytes 3 % (21-51); MDiff Complete? YES; Mean Corpuscular HGB CONC 34.7 g/dL (32.0-36.0); Mean Corpuscular Hemoglobin 33.7 pg (27.0-31.0); Mean Corpuscular Volume 97.1 fL (78.0-98.0); Mean Platelet Volume 6.7 fL (7.4-10.4); Monocytes 6 % (0-10); Neutrophil 74 % (42-75); Platelet Count 306 thou/uL (130-400); RBC Distribution Width 11.8 % (11.5-14.5); Red Blood Cell (RBC) Count 3.36 mill/uL (4.20-5.40); White Blood Cell (WBC) Count 26.2 thou/uL (4.8-10.8)
[2019-12-16] MEDS ORDERED: Lidocaine Patch Removal 1 EACH TOP SCH (06:00)
[2019-12-16] MEDS: Acetaminophen/Codeine 30-300mg Tablet PO SCH (06:07)
[2019-12-16] MEDS: Sodium Chloride 0.9% 1,000 ML IV SCH ×4 (06:07→20:22)
[2019-12-16] MEDS: Midodrine HCl 5 MG TAB PO SCH ×3 (07:37→20:21)
[2019-12-16] MEDS: Lidocaine Patch Removal 1 EACH TOP SCH (10:58)
[2019-12-16] MEDS: Ondansetron PF 4 MG/2 ML Vial IVP PRN ×2 (11:17→20:20)
[2019-12-16] MEDS ORDERED: Albumin 5% 250 ML ONE (11:25)
[2019-12-16] MEDS: Albumin 25% 25 GM/100 ML BOT IVPB SCH ×2 (12:56→17:28)
[2019-12-16] MEDS: Acetaminophen/Codeine 30-300mg Tablet PO PRN ×2 (13:09→22:41)
--- NOTE | 2019-12-16 13:44 | PDOC.HOSPP ---
- Subjective Encounter Date: 12/16/19 Encounter Time: 10:00 Subjective: Discussed the care with the RN as well as with the family at bedside. Pressure seems to be lately better in the systolic 102 range. She did had a low blood pressure initially. She is getting 125 mL of NS. She has no appetite and mildly nauseated. Her abdomen is distended and tender for palpation. - Objective Vital Signs & Weight: Vital Signs (12 hours) Temp Pulse Ox 12/16/19 11:00 98.8 F 12/16/19 07:20 100 12/16/19 07:00 98.1 F 12/16/19 04:00 98.4 F Weight Weight 120 lb 9 oz Most Recent Monitor Data Heart Rate from ECG 102 NIBP 102/64 NIBP BP-Mean 76 Respiration from ECG 28 SpO2 100 I&O: 12/15/19 12/16/19 12/17/19 06:59 06:59 06:59 Intake Total 3300.3 50 Output Total 1000 250 Balance 2300.3 -200 Result Diagrams: 12/16/19 03:24 12/16/19 03:24 Hospitalist ROS - Medication Medications: Active Medications Generic Name Dose Route Start Last Admin Trade Name Freq PRN Reason Stop Dose Admin Acetaminophen/Codeine Phosphate 1 tab 12/16/19 10:41 12/16/19 13:09 Acetaminophen/Codeine 30-300mg Tablet PO 1 tab Q8H PRN Administration Pain Albumin Human 25 gm 12/16/19 12:15 12/16/19 12:56 Albumin 25% 25 Gm/100 Ml Bot IVPB 12/18/19 06:16 Not Given Q6H LISA Sodium Chloride 1,000 mls @ 125 mls/hr 12/15/19 13:45 12/16/19 13:18 Normal Saline 0.9% IV Not Given .Q8H LISA Metronidazole 500 mg/ Device 100 mls @ 100 mls/hr 12/15/19 20:00 12/16/19 11:12 IVPB 100 mls 0400,1200,2000 LISA Administration Norepinephrine Bitartrate 250 mls @ 0 mls/hr 12/15/19 18:15 12/15/19 19:42 Levophed IVPB 250 mls INF LISA Administration Protocol Titrate Lidocaine 1 patch 12/15/19 18:00 12/15/19 22:26 Lidocaine 5% Patch TD 1 patch Q24HR LISA Administration Midodrine 5 mg 12/15/19 21:00 12/16/19 07:37 Midodrine Hcl 5 Mg Tab PO 5 mg TID LISA Administration Miscellaneous Medication 1 each 12/16/19 10:30 12/16/19 10:58 Lidocaine Patch Removal 1 Each TOP 1 each 1030 LISA Administration Ondansetron HCl 4 mg 12/16/19 10:42 12/16/19 11:17 Ondansetron Pf 4 Mg/2 Ml Vial IVP 4 mg Q6H PRN Administration Nausea/Vomiting Sodium Chloride 10 ml 12/15/19 21:00 12/16/19 08:01 Flush - Normal Saline 10 Ml Syringe IVF 10 ml Q12HR LISA Administration Vancomycin HCl 500 mg 12/15/19 15:00 12/16/19 09:29 Vancomycin Hcl 25 Mg/Ml Oral PO 500 mg 0300,0900,1500,2100 LISA Administration - Exam General Appearance: ill appearing Eye: PERRL ENT: normocephalic atraumatic Neck: supple Heart: RRR Respiratory: CTAB, normal chest expansion Gastrointestinal: tender to palpation, distended Neurological: no focal deficits Psychiatric: A&O x 3 Hosp A/P - Plan Sepsis secondary to C. difficile colitis Elevated WBC, tachycardia, hypotension Received 3 L normal saline We will continue IV fluids, antiemetics Treatment for C. difficile fulminant C. difficile colitis WBC 22.9 with hypotension Recent surgery for antibiotic administration Start oral vancomycin, continue metronidazole IV N.p.o. for now GI on board A. fib Not on anticoagulation Not in RVR Given her unstable state to monitor in telemetry. 8th CT abdomen shows severe diffuse colitis and moderate free intraperitoneal fluid. Cholelithiasis without acute cholecystitis. Talked peripherally with general surgery. As she seems to be stable at this point will manage medically. Continue with IV Flagyl and p.o. vancomycin antiemetics and IV fluid at 125 mL an hour. Her white count increased slightly. Her blood pressure seems to be better lat patricia. Getting a repeat lactic acid level. Last one at 1.2. If her clinical conditions worsens, consider consulting general surgery at that time.. CODE STATUSDNR DVT prophylaxisSCD
[2019-12-16] MEDS: Lidocaine 5% Patch TD SCH (17:50)
[2019-12-16 19:37] LABS: SARS-CoV-2 MS2 Positive; SARS-CoV-2 N Gene Negative; SARS-CoV-2 S Gene Negative; SARS-CoV-2 by NAA Not Detected (NotDetected); SARS-CoV-2 orf1ab Negative
--- NOTE | 2019-12-16 20:07 | PRG ---
DATE OF SERVICE: 12/16/2019 SUBJECTIVE: Ms. Moyer has been moved to the ICU. She was a little bit hypotensive yesterday. Apparently, she dropped her pressures at the upper 80s and lower 90s transiently. She received a 500 mL bolus and before response was moved to the ICU, where she was given a liter bolus and her pressures have come up. She states she feels a little better than yesterday. Her last bowel movement was about 5 this morning. She is tolerating some liquids. Urine output has been 500, stool 750 since admission. Input 3300. OBJECTIVE: VITAL SIGNS: Blood pressure 94/56 presently, temperature 98, and pulse 97. LUNGS: Clear. HEART: Regular rate and rhythm. ABDOMEN: Slightly protuberant and nontender. Bowel sounds present. There is no guarding. EXTREMITIES: No clubbing, cyanosis, or edema. LABORATORY DATA: White count 26,000 and it has gone up since yesterday, hemoglobin 11.3 and it is up from 9.9, and 16% bands. Sodium 135, potassium 4, chloride 111, bicarb 13, BUN 22, creatinine 0.9, calcium 7.3, magnesium 1.5, phosphorus 4.1, albumin 2.1, and protein 4. ASSESSMENT: 1. Severe Clostridium difficile colitis. 2. Dehydration. The patient's hemoglobin has actually gone up. White count has gone up. Renal function is variable. She will be started on pressors. RECOMMENDATIONS: She needs more aggressive resuscitation with IV fluids and albumin. I have discussed with ICU physician. Job ID: [id number]
[2019-12-16] MEDS: Acetaminophen 325 MG TAB PO PRN (20:21)
--- NOTE | 2019-12-17 00:38 | CON ---
DATE OF CONSULTATION: 12/16/2019 SUBJECTIVE: Ms. Moyer is a very pleasant 84-year-old female who is quite frail. She had finger surgery and then developed an infection, received 2 rounds of antibiotics and now has C. difficile colitis. She came in significantly dehydrated with some diarrhea. She was transferred to critical care because of lowish blood pressure last night, but family says her best blood pressure she has at home as right around 100 systolic. She has been weaned off pressors today with salt poor albumin. PAST MEDICAL HISTORY: Remarkable for osteoarthritis and atrial fibrillation. FAMILY HISTORY: Negative for lung disease in early age. SOCIAL HISTORY: She is a nonsmoker, nondrinker. ALLERGIES: SHE REPORTS ALLERGIES TO SULFA. REVIEW OF SYSTEMS: Otherwise negative. PHYSICAL EXAMINATION: GENERAL: She is a very frail-appearing woman. VITAL SIGNS: Her blood pressure is in the mid 90s. She is in atrial fibrillation. Heart rate is 99. HEENT: She has temporal muscle wasting. NECK: Without lymphadenopathy. LUNGS: Clear anteriorly. HEART: Irregular rhythm. ABDOMEN: Soft, nontender. EXTREMITIES: Without clubbing, cyanosis, or edema. LABORATORY DATA: White count 26.2, hemoglobin 11.3, platelets 306. Electrolytes; sodium 135, potassium 4.1, chloride 111, bicarb 13, BUN 22, creatinine 0.9, magnesium is 1.5. Albumin was 2.1. She had two 25 g bottles of salt poor albumin this morning. IMPRESSION: 1. Severe intravascular volume depletion with hypoalbuminemia secondary to Clostridium difficile diarrhea. 2. Electrolyte abnormalities associated with diarrhea. 3. Deconditioning. She is weaned off pressors. Hopefully, she will be transferred out of Critical Care before too long. She has a nontender abdomen, nothing to suggest that she is developing a megacolon at this point in time. Dr. Brown is coordinating antimicrobial therapy. This was a 70 min consult with greater than 50% of the time spent on the unit with coordination of care. Job ID: [id number] [facility]
[2019-12-17] MEDS: Albumin 25% 25 GM/100 ML BOT IVPB SCH ×4 (00:51→23:17)
[2019-12-17] MEDS: Acetaminophen 325 MG TAB PO PRN (00:53)
[2019-12-17] MEDS: Vancomycin HCl 25 MG/ML Oral PO SCH ×4 (03:30→19:40)
[2019-12-17] MEDS: metroNIDAZOLE 500 MG in Premix Bag 1 BAG IVPB SCH ×3 (03:31→19:38)
[2019-12-17] MEDS: Sodium Chloride 0.9% 1,000 ML IV SCH ×3 (05:21→18:26)
[2019-12-17] MEDS ORDERED: Sodium Chloride 0.9% 500 ML IVPB SCH (06:30)
[2019-12-17] MEDS: Ondansetron PF 4 MG/2 ML Vial IVP PRN (07:19)
--- NOTE | 2019-12-17 08:14 | PDOC.HOSPP ---
- Subjective Encounter Date: 12/17/19 Encounter Time: 07:58 Subjective: abdominal pain, distention - Objective Vital Signs & Weight: Vital Signs (12 hours) Temp Pulse Ox 12/17/19 06:59 100 12/17/19 04:00 96.9 F L 12/17/19 00:00 97.0 F L 12/16/19 20:00 96.1 F L 100 Weight Weight 120 lb 9 oz Most Recent Monitor Data Heart Rate from ECG 103 NIBP 87/50 NIBP BP-Mean 62 Respiration from ECG 24 SpO2 100 I&O: 12/16/19 12/17/19 12/18/19 06:59 06:59 06:59 Intake Total 3300.3 3723.5 Output Total 1000 769 10 Balance 2300.3 2954.5 -10 Result Diagrams: 12/16/19 03:24 12/16/19 03:24 Hospitalist ROS - Medication Medications: Active Medications Generic Name Dose Route Start Last Admin Trade Name Freq PRN Reason Stop Dose Admin Acetaminophen 650 mg 12/16/19 10:42 12/17/19 00:53 Acetaminophen 325 Mg Tab PO 650 mg Q4H PRN Administration Headache/Fever or Pain Acetaminophen/Codeine Phosphate 1 tab 12/16/19 10:41 12/16/19 22:41 Acetaminophen/Codeine 30-300mg Tablet PO 1 tab Q8H PRN Administration Pain Albumin Human 25 gm 12/16/19 12:15 12/17/19 05:21 Albumin 25% 25 Gm/100 Ml Bot IVPB 12/18/19 06:16 25 gm Q6H LISA Administration Sodium Chloride 1,000 mls @ 125 mls/hr 12/15/19 13:45 12/17/19 05:21 Normal Saline 0.9% IV 1,000 mls .Q8H LISA Administration Metronidazole 500 mg/ Device 100 mls @ 100 mls/hr 12/15/19 20:00 12/17/19 03:31 IVPB 100 mls 0400,1200,2000 LISA Administration Norepinephrine Bitartrate 250 mls @ 0 mls/hr 12/15/19 18:15 12/15/19 19:42 Levophed IVPB 250 mls INF LISA Administration Protocol Titrate Lidocaine 1 patch 12/15/19 18:00 12/16/19 17:50 Lidocaine 5% Patch TD 1 patch Q24HR LISA Administration Midodrine 5 mg 12/15/19 21:00 12/16/19 20:21 Midodrine Hcl 5 Mg Tab PO 5 mg TID LISA Administration Miscellaneous Medication 1 each 12/16/19 10:30 12/16/19 10:58 Lidocaine Patch Removal 1 Each TOP 1 each 1030 LISA Administration Ondansetron HCl 4 mg 12/16/19 10:42 12/17/19 07:19 Ondansetron Pf 4 Mg/2 Ml Vial IVP 4 mg Q6H PRN Administration Nausea/Vomiting Ranolazine 500 mg 12/16/19 21:00 12/16/19 20:21 Ranolazine 500 Mg Tab PO 500 mg BID LISA Administration Sodium Chloride 10 ml 12/15/19 21:00 12/16/19 20:22 Flush - Normal Saline 10 Ml Syringe IVF 10 ml Q12HR LISA Administration Vancomycin HCl 500 mg 12/15/19 15:00 12/17/19 03:30 Vancomycin Hcl 25 Mg/Ml Oral PO 500 mg 0300,0900,1500,2100 LISA Administration - Exam General Appearance: ill appearing Neck: no JVD Heart: RRR, no murmur Respiratory: CTAB Gastrointestinal: tender to palpation, distended Extremities: no edema Hosp A/P (1) Colitis due to Clostridium difficile Code(s): A04.72 - ENTEROCOLITIS D/T CLOSTRIDIUM DIFFICILE, NOT SPCF RECUR Status: Acute (2) Dehydration Code(s): E86.0 - DEHYDRATION Status: Acute (3) Hypotension Status: Acute Qualifiers: Hypotension type: unspecified hypotension type Qualified Code(s): I95.9 - Hypotension, unspecified (4) UTI (urinary tract infection) Status: Acute Qualifiers: Hematuria presence: without hematuria (5) Abdominal pain Code(s): R10.9 - UNSPECIFIED ABDOMINAL PAIN Status: Acute - Plan cont po vanc, iv flagyl cont fluid resuscitation stat CT abd pending for possible megacolon
[2019-12-17] MEDS ORDERED: Sodium Chloride 0.9% 500 ML IV SCH (08:15)
[2019-12-17] MEDS ORDERED: Morphine 4 MG/ML VIAL ONE ×2 (08:18→10:45)
[2019-12-17] MEDS: Morphine 2 MG/ML VIAL SLOW IVP SCH ×2 (08:58→09:44)
--- NOTE | 2019-12-17 09:29 | CT ---
CT OF THE ABDOMEN AND PELVIS WITHOUT IV CONTRAST: INDICATION: History of enlarged colon related to C. difficile infection. COMPARISON: Prior exam dated 12/15/2019. FINDINGS: There are worsening moderate bilateral pleural effusions and bibasilar atelectasis. There is worseni ng anasarca and ascites. There is worsening anasarca and ascites. An unopacified liver is unremarkable. There is a small hiatal hernia. Hypertrophy of the adrenal gl ands and left renal cyst are stable. Spleen is normal-appearing. There is prominent wall thickening and dilatation involving the colon that appearance worse than on t he prior exam. There is also some wall thickening involving the rectum that is also more pronounced. There are a few dilated loops of small bowel with the upper central abdomen suspicious for reactive ileus. The appendix is not definitely seen. No overt drainable fluid collection is evident. No fr ee air is demonstrated. There is moderate to severe calcification involving abdominopelvic vasculatu re. Bladder is decompressed with a Lai catheter. Reproductive structures are not well seen. Cosmetician Apprentice yo osseous changes are seen. IMPRESSION: 1. Worsening proctocolitis. 2. Worsening bilateral pleural effusions, ascites, and anasarca. 3. Worsening hydropic appearance of the gallbladder with cholelithiasis. 4. There are a few dilated loops of small bowel within the upper central abdomen likely related to a reactive ileus. POS: TORO
[2019-12-17] MEDS: Midodrine HCl 5 MG TAB PO SCH ×3 (09:44→19:39)
[2019-12-17] MEDS: Lidocaine Patch Removal 1 EACH TOP SCH (10:54)
[2019-12-17] MEDS: Morphine 2 MG/ML VIAL SLOW IVP PRN ×5 (11:39→23:25)
--- NOTE | 2019-12-17 12:39 | PRG ---
DATE OF SERVICE: 12/17/2019 SUBJECTIVE: Ms. Moyer overnight had some abdominal pain and was not voiding. We placed a Lai catheter and got out 350 mL, but she has had a little output of about 10 mL/h since then. She received a liter of fluid bolus and she is on albumin IV q.6. blood pressure is running in the 90s/50s, respirations are 18. She does have worsening abdominal pain. With her worsening abdominal pain, she was sent for a CAT scan this morning without contrast and it did show mild dilation of the small bowel consistent with ileus, some increased thickening and stranding around the colon, hydropic appearance of the gallbladder with some cholelithiasis and worsening bilateral pleural effusions, ascites, and anasarca. On exam, she is having some lower abdominal pain, but is not tensed or distended. She does have some positive bowel sounds. Mucous membranes are dry. She has no peripheral edema or sacral edema, ASSESSMENT: Severe Clostridium difficile colitis with features of sepsis. RECOMMENDATIONS: 1. NG tube. We will give a bolus of a liter of fluid, increases with IV 150 an hour. 2. We will add Dificid after talking with Dr. Edmonds. He feels that would be a reasonable course. If the patient develops an ileus and is not having the bowel movements, we need to change the vancomycin to enemas, and I going to enquire to see if we can get the fecal microbiota transplant that had been put on hold when COVID started, but I will talk with the Pharmacy and see if that is available again. Prognosis is very guarded. I have discussed with quality technician fiberglass and Internal Medicine. Job ID: [id number]
[2019-12-17] MEDS: Fidaxomicin 200 MG TAB PER TUBE SCH ×2 (12:49→23:16)
[2019-12-17] MEDS ORDERED: Sodium Chloride 0.9% 1,000 ML IV SCH (13:00)
[2019-12-17 14:51] LABS: ALT (SGPT) Less than 7 U/L (8-55); AST (SGOT) 9 U/L (5-34); Albumin 3.3 g/dL (3.4-4.8); Alkaline Phosphatase 47 U/L (40-110); Anion Gap 19 mmol/L (10-20); BUN (Urea Nitrogen) 32 mg/dL (9.8-20.1); Bilirubin, Total 0.3 mg/dL (0.2-1.2); Calc. Creatinine Clearance 19 mL/min (70-130); Calcium 7.2 mg/dL (7.8-10.44); Carbon Dioxide 9 mmol/L (23-31); Chloride 112 mmol/L (98-107); Estimated GFR-MDRD 27; Globulin 1.5 g/dL (2.4-3.5); Glucose 87 mg/dL (83-110); Potassium 4.3 mmol/L (3.5-5.1); Protein, Total 4.8 g/dL (6.0-8.3); Sodium 136 mmol/L (136-145)
--- NOTE | 2019-12-17 15:07 | PDOC.BPN ---
- Brief Progress Note Encounter Date: 12/17/19 Encounter Time: 15:[address] Brown- patient will receive fecal transplant for refractory, life threatening C diff colitis
[2019-12-17 15:49] LABS: Band 53 % (5-11); Burr Cells SLIGHT = 2-5 cells (100X) (0-1/hpf); MDiff Complete? YES; Macrocytosis SLIGHT = 6-15 cells (100X) (0-5/hpf); Mean Corpuscular HGB CONC 32.8 g/dL (32.0-36.0); Mean Corpuscular Hemoglobin 32.9 pg (27.0-31.0); Mean Platelet Volume 7.2 fL (7.4-10.4); Monocytes 5 % (0-10); Neutrophil 41 % (42-75); Platelet Count 288 thou/uL (130-400); Platelet Morphology Comment Appears Adequate; Polychromasia SLIGHT = 2-3 cells (100X) (0-2/hpf); RBC Distribution Width 12.3 % (11.5-14.5); Reactive Lymphocytes 1 % (0-10); Red Blood Cell (RBC) Count 3.03 mill/uL (4.20-5.40); White Blood Cell (WBC) Count 19.3 thou/uL (4.8-10.8)
--- NOTE | 2019-12-17 17:24 | PRG ---
DATE OF SERVICE: 12/17/2019 SUBJECTIVE: Ms. Moyer has more abdominal distention and more discomfort this morning. Urine output is falling off significantly. She is basically anuric today. OBJECTIVE: LUNGS: Clear. HEART: Regular rhythm. ABDOMEN: Soft. IMAGING STUDIES: Repeat abdomen and pelvis CT today shows worsening distal colon inflammatory changes, bilateral effusions, there are still small ascites. ASSESSMENT AND PLAN: I suspect she will progressively decline this illness given her advanced age and her extremely frail state. We will continue to follow along with the tactical debriefer officer and the hospitalists. Job ID: [id number]
[2019-12-17] MEDS: Lidocaine 5% Patch TD SCH (18:14)
[2019-12-17] MEDS ORDERED: Albumin 25% 25 GM/100 ML BOT IVPB SCH (19:00)
[2019-12-17] MEDS ORDERED: Digoxin 0.5 MG/2 ML AMP SLOW IVP SCH (19:15)
[2019-12-17] MEDS ORDERED: Saccharomyces boulardii 250 MG CAP PO SCH (21:00)
[2019-12-17 23:08] VITALS: BMI 22.5
[2019-12-18] MEDS ORDERED: Digoxin 0.5 MG/2 ML AMP SLOW IVP SCH
[2019-12-18] MEDS: Sodium Chloride 0.9% 1,000 ML IV SCH ×2 (01:58→09:21)
[2019-12-18] MEDS: Vancomycin HCl 25 MG/ML Oral PO SCH ×3 (02:21→15:19)
[2019-12-18] MEDS: metroNIDAZOLE 500 MG in Premix Bag 1 BAG IVPB SCH ×2 (03:29→12:47)
[2019-12-18] MEDS: Morphine 2 MG/ML VIAL SLOW IVP PRN ×6 (03:30→12:20)
[2019-12-18 04:18] LABS: ALT (SGPT) 8 U/L (8-55); AST (SGOT) 8 U/L (5-34); Albumin 3.7 g/dL (3.4-4.8); Alkaline Phosphatase 70 U/L (40-110); Anion Gap 19 mmol/L (10-20); BUN (Urea Nitrogen) 33 mg/dL (9.8-20.1); Bilirubin, Total 0.3 mg/dL (0.2-1.2); Calc. Creatinine Clearance 17 mL/min (70-130); Calcium 7.9 mg/dL (7.8-10.44); Chloride 114 mmol/L (98-107); Estimated GFR-MDRD 20; Globulin 1.6 g/dL (2.4-3.5); Glucose 95 mg/dL (83-110); Potassium 4.5 mmol/L (3.5-5.1); Protein, Total 5.3 g/dL (6.0-8.3); Sodium 137 mmol/L (136-145)
[2019-12-18 04:26] LABS: Carbon Dioxide 9 mmol/L (23-31)
[2019-12-18 05:22] LABS: Band 31 % (5-11); Burr Cells SLIGHT = 2-5 cells (100X) (0-1/hpf); Hemoglobin 9.3 g/dL (12.0-16.0); Lymphocytes 2 % (21-51); MDiff Complete? YES; Mean Corpuscular HGB CONC 32.7 g/dL (32.0-36.0); Mean Corpuscular Hemoglobin 33.2 pg (27.0-31.0); Mean Platelet Volume 7.3 fL (7.4-10.4); Monocytes 3 % (0-10); Neutrophil 64 % (42-75); Platelet Count 272 thou/uL (130-400); RBC Distribution Width 12.4 % (11.5-14.5); White Blood Cell (WBC) Count 20.4 thou/uL (4.8-10.8)
[2019-12-18] MEDS: Albumin 25% 25 GM/100 ML BOT IVPB SCH ×2 (05:30→12:47)
--- NOTE | 2019-12-18 08:20 | PDOC.HOSPP ---
- Subjective Encounter Date: 12/18/19 Encounter Time: 08:18 Subjective: non-responsive, agonal respirations - Objective Vital Signs & Weight: Vital Signs (12 hours) Temp Pulse Pulse Ox 12/18/19 07:02 95 12/18/19 07:00 99.0 F 12/18/19 03:00 99.1 F 12/18/19 00:00 99.2 F 12/17/19 23:30 115 H Weight Weight 140 lb Most Recent Monitor Data Heart Rate from ECG 102 NIBP 115/55 NIBP BP-Mean 75 Respiration from ECG 16 SpO2 96 I&O: 12/17/19 12/18/19 12/19/19 06:59 06:59 06:59 Intake Total 3723.5 740 Output Total 769 293 0 Balance 2954.5 447 0 Result Diagrams: 12/18/19 03:22 12/18/19 03:22 Hospitalist ROS - Medication Medications: Active Medications Generic Name Dose Route Start Last Admin Trade Name Freq PRN Reason Stop Dose Admin Acetaminophen 650 mg 12/16/19 10:42 12/17/19 00:53 Acetaminophen 325 Mg Tab PO 650 mg Q4H PRN Administration Headache/Fever or Pain Acetaminophen/Codeine Phosphate 1 tab 12/16/19 10:41 12/16/19 22:41 Acetaminophen/Codeine 30-300mg Tablet PO 1 tab Q8H PRN Administration Pain Albumin Human 25 gm 12/17/19 23:59 12/18/19 05:30 Albumin 25% 25 Gm/100 Ml Bot IVPB 12/18/19 19:00 25 gm Q6HR LISA Administration Fidaxomicin 200 mg 12/17/19 12:00 12/17/19 23:16 Fidaxomicin 200 Mg Tab PER TUBE 200 mg BID LISA Administration Sodium Chloride 1,000 mls @ 150 mls/hr 12/15/19 13:45 12/18/19 01:58 Normal Saline 0.9% IV 1,000 mls .Q6H40M LISA Administration Metronidazole 500 mg/ Device 100 mls @ 100 mls/hr 12/15/19 20:00 12/18/19 03:29 IVPB 100 mls 0400,1200,2000 LISA Administration Norepinephrine Bitartrate 250 mls @ 0 mls/hr 12/15/19 18:15 12/15/19 19:42 Levophed IVPB 250 mls INF LISA Administration Protocol Titrate Lidocaine 1 patch 12/15/19 18:00 12/17/19 18:14 Lidocaine 5% Patch TD 1 patch Q24HR LISA Administration Midodrine 5 mg 12/15/19 21:00 12/17/19 19:39 Midodrine Hcl 5 Mg Tab PO 5 mg TID LISA Administration Miscellaneous Medication 1 each 12/16/19 10:30 12/17/19 10:54 Lidocaine Patch Removal 1 Each TOP Not Given 1030 [facility] Morphine Sulfate 2 mg 12/17/19 10:49 12/18/19 07:27 Morphine 2 Mg/Ml Vial SLOW IVP 2 mg Q1H PRN Administration Pain Ondansetron HCl 4 mg 12/16/19 10:42 12/17/19 07:19 Ondansetron Pf 4 Mg/2 Ml Vial IVP 4 mg Q6H PRN Administration Nausea/Vomiting Ranolazine 500 mg 12/16/19 21:00 12/17/19 19:39 Ranolazine 500 Mg Tab PO 500 mg BID LISA Administration Saccharomyces Boulardii 250 mg 12/17/19 21:00 12/17/19 22:46 Saccharomyces Boulardii 250 Mg Cap PO 250 mg HS LISA Administration Sodium Chloride 10 ml 12/15/19 21:00 12/17/19 19:40 Flush - Normal Saline 10 Ml Syringe IVF 10 ml Q12HR LISA Administration Vancomycin HCl 500 mg 12/15/19 15:00 12/18/19 02:21 Vancomycin Hcl 25 Mg/Ml Oral PO 500 mg 0300,0900,1500,2100 LISA Administration - Exam General Appearance: ill appearing Neck: no JVD Heart: irregular Respiratory - other findings: coarse BS Gastrointestinal: distended, diminished bowl sounds Extremities: 1+ LE edema Hosp A/P (1) Colitis due to Clostridium difficile Code(s): A04.72 - ENTEROCOLITIS D/T CLOSTRIDIUM DIFFICILE, NOT SPCF RECUR Status: Acute (2) Dehydration Code(s): E86.0 - DEHYDRATION Status: Acute (3) Hypotension Status: Acute Qualifiers: Hypotension type: unspecified hypotension type Qualified Code(s): I95.9 - Hypotension, unspecified (4) UTI (urinary tract infection) Status: Acute Qualifiers: Hematuria presence: without hematuria (5) Abdominal pain Code(s): R10.9 - UNSPECIFIED ABDOMINAL PAIN Status: Acute (6) Metabolic acidosis Code(s): E87.2 - ACIDOSIS Status: Acute (7) Ischemic bowel syndrome Code(s): K55.9 - VASCULAR DISORDER OF INTESTINE, UNSPECIFIED Status: Acute - Plan patient mis agonal, family aware discussed with Dr Corado marked acidosis likely due to ischemic bowel DNR staus- surgery not an option at this time family to be here soon
[2019-12-18] MEDS: Fidaxomicin 200 MG TAB PER TUBE SCH (08:25)
[2019-12-18] MEDS: Midodrine HCl 5 MG TAB PO SCH ×2 (08:25→15:18)
--- NOTE | 2019-12-18 09:42 | PRG ---
DATE OF SERVICE: 12/18/2019 SUBJECTIVE: Ms. Moyer took a turn for the worse last night. She is now nonresponsive with agonal respiration, requiring pressors. Laboratory studies are showing progressive renal failure. Urine output has dropped. She is severely acidotic. She is DNR, not a surgical candidate. The family is discussing goals of care to include comfort measures only. OBJECTIVE: VITAL SIGNS: Heart rate 102, blood pressure 115/55, 96% oxygen saturation on room air, temperature 99.0. GENERAL: Critically ill, unresponsive, breathing agonally, NG tube in place. HEART: Regular tachycardia. LUNGS: Agonal breathing. Clear to auscultation. ABDOMEN: Distended, tympanitic, some withdrawal to palpation. Bowel sounds absent. EXTREMITIES: No peripheral edema. LABORATORY STUDIES: Sodium 137, potassium 4.5, BUN 33, creatinine 2.33, calcium 7.9, albumin 3.7, total bilirubin 0.3, alkaline phosphatase 70, AST 8, ALT 8. WBC up to 20.4, hemoglobin 9.3, and platelets 272. ASSESSMENT AND PLAN: 1. Severe Clostridium difficile colitis. Unfortunately, she has continued to clinically deteriorate despite aggressive therapy with oral vancomycin, Dificid, and IV Flagyl. 2. Toxic megacolon. 3. Sepsis with end-organ dysfunction. I had a long discussion with the family at bedside. The prognosis is grave. Fecal microbiota transplant is not available at this time. The only other heroic option would be surgical consultation for consideration of colectomy, which they have stated the patient would not want to entertain. I feel it is appropriate to adjust goals of care to comfort measures if that is what the family desires. Job ID: [id number]
[2019-12-18] MEDS: Lidocaine Patch Removal 1 EACH TOP SCH (09:57)
--- NOTE | 2019-12-18 12:50 | PQF ---
CLINICAL DOCUMENTATION CLARIFICATION FORM: Dear Dr. Carr Date: 12/18/2019 Please exercise your independent, professional judgment in responding to the clarification form. Clinical indicators are provided on the bottom of this form for your review. Please check appropriate box(s): [ ] Septic Shock [ x ] Hypovolemic Shock [ ] Hypotension without shock [ ] Other diagnosis cardiogenic shock [ ] Unable to determine In addition, please specify: Present on Admission (POA): [ x] Yes [ ] No [ ] Unable to determine For continuity of documentation, please document condition throughout progress notes and discharge summary. Thank You. CLINICAL INDICATORS - SIGNS / SYMPTOMS / LABS / RESULTS AND LOCATION IN EMR *ED Vital Signs: Pulse 85-104 BP 87/51 - 102/65 *H&P 12/14 (Affram): * At presentation her blood pressure was 102/65 however her maps intermittently goes below 65. * Sepsis * Elevated WBC, tachycardia, hypotension. *PN 12/14 (Affram): * Blood pressure was trending downwards. * Pressure went as low as 79/52 and after 1 L bolus normal saline at 89/54. * We are transferring to CCU for IV pressors. *Consultation 12/15 (Mickie): Severe intravascular volume depletion with hypoalbuminemia secondary to Clostridium diarrhea *PN 12/17 (Case): Sepsis with end-organ dysfunction. *PN 12/17 (Bruno); Non-responsive, agonal respirations. RISK FACTORS / RESULTS AND LOCATION IN EMR *ED 12/14: Colitis . Dehydration *H&P 12/14 (Afram): Sepsis *Consultation 12/15 (Mickie): Severe intravascular volume depletion with hypoalbuminemia secondary to Clostridium diarrhea *PN 12/17 (Bruno): Ischemic bowel syndrome TREATMENTS / RESULTS AND LOCATION IN EMR *ED 12/14: NS 1L IV x2, Metronidazole IV, Cefepime IV *H&P 12/14 (Afram): We will continue IV fluids ... Treatment for C. Difficile . Start oral vancomycin, continue metronidazole IV. *PN 12/14 (Affram): We are transferring to CCU for IV pressors. Notify pulmonology. *MAR (EMR): NS 150mls/h IV 12/14-12/17 *PN 12/15 (Baldobes): more aggressive resuscitation with IV fluids and albumin. Thank you, Ashli CDS/Property Disposal Manager Signature: Ashli Johnson RN, CDS Phone #: [phone] [email or web address] This is a permanent part of the Medical Record MTDD
[2019-12-18] MEDS ORDERED: Morphine 4 MG/ML VIAL ONE (13:19)
[2019-12-18] MEDS ORDERED: Lorazepam 2 MG/ML VIAL ONE (13:19)
[2019-12-18] MEDS ORDERED: Morphine 4 MG/ML VIAL SLOW IVP PRN ×2 (13:22→15:21)
[2019-12-18] MEDS ORDERED: Lorazepam 2 MG/ML VIAL SLOW IVP SCH (13:30)
[2019-12-18] MEDS ORDERED: diphenhydrAMINE 50 MG/ML VIAL IVP SCH (13:30)
[2019-12-18] MEDS: Morphine 10 MG/ML VIAL SLOW IVP PRN ×4 (14:16→16:15)
[2019-12-18] MEDS ORDERED: Lorazepam 2 MG/ML VIAL SLOW IVP PRN ×2 (15:21→15:22)
[2019-12-18] MEDS ORDERED: diphenhydrAMINE 50 MG/ML VIAL IVP PRN (15:30)
[2019-12-18] MEDS ORDERED: Ondansetron PF 4 MG/2 ML Vial IVP PRN (15:30)
[2019-12-18] MEDS ORDERED: chlorproMAZINE HCl 25 MG in Sodium Chloride 0.9% 50 ML IVPB PRN (15:30)
[2019-12-18] MEDS ORDERED: Acetaminophen 650 MG Suppository PR PRN (15:30)
[2019-12-18] MEDS ORDERED: Scopolamine 1.5 mg/72 hour Patch TOP PRN (15:30)
[2019-12-18] MEDS ORDERED: Haloperidol Lactate 5 MG/ML VIAL SLOW IVP PRN (15:30)
[2019-12-18] MEDS ORDERED: Senokot 8.6 MG TAB PO PRN (15:30)
[2019-12-18 16:04] VITALS: TEMP 98.7
--- NOTE | 2019-12-19 15:28 | DIS ---
DATE OF ADMISSION: 12/15/2019 DATE OF DISCHARGE: 12/18/2019 ADDENDUM: I need to make a correction. I did a discharge summary, in which I used the case #[id number]. Discharge summary for Amie Moyer, medical record #[id number], in fact that is her hospice case number. The actual number for the admission was [id number]. Please change that account number for me. Job ID: [id number]
== END 2019-12-18 16:55 | disposition hospice, inpatient (51) | DRG 871 ==
LOC: ERS 08:48 → 2NO 12:49 → CCU 19:32
PROVIDERS: ADMIT Student in an Organized Health Care Education/Training Program; ATTEND Internal Medicine
PROC: 3E033XZ Introduction of Vasopressor into Peripheral Vein, Percutaneous Approach (ICD-10-PCS; principal; 2019-12-15)
DX: A41.89 Other specified sepsis (principal); R57.0 Cardiogenic shock; R57.1 Hypovolemic shock; A04.72 Enterocolitis due to Clostridium difficile, not specified as recurrent; N39.0 Urinary tract infection, site not specified; E87.2 Acidosis; K55.9 Vascular disorder of intestine, unspecified; Z20.828 Contact with and (suspected) exposure to other viral communicable diseases; I48.91 Unspecified atrial fibrillation; M19.90 Unspecified osteoarthritis, unspecified site; E86.0 Dehydration; Z66 Do not resuscitate; K80.20 Calculus of gallbladder without cholecystitis without obstruction; E88.09 Other disorders of plasma-protein metabolism, not elsewhere classified; R53.81 Other malaise
CPT/HCPCS: 36415; 51701; 71045; 74176; 74177; 80053; 81003; 81015; 82553; 82728; 83605; 83690; 83735; 84100; 84443; 84484; 85025; 85379; 86140; 87040; 87077; 87086; 87149; 87186; 87324; 87449; 87635; 93005; 94760; 96365; 96374; 96375; J0692; J1160; J1200; J2060; J2270; J2405; J7030; P9045; P9047; Q9967; U0003

== ENCOUNTER 2019-12-18 17:02 | Inpatient (IN) | payer OTHER ==
[2019-12-18] MEDS ORDERED: Lorazepam 2 MG/ML VIAL SLOW IVP PRN (17:14)
[2019-12-18 17:15] VITALS: BMI 19.4
[2019-12-18] MEDS ORDERED: diphenhydrAMINE 50 MG/ML VIAL IVP PRN (17:15)
[2019-12-18] MEDS ORDERED: Scopolamine 1.5 mg/72 hour Patch TOP PRN (17:15)
[2019-12-18] MEDS ORDERED: chlorproMAZINE HCl 25 MG in Sodium Chloride 0.9% 50 ML IVPB PRN (17:15)
[2019-12-18] MEDS ORDERED: Haloperidol Lactate 5 MG/ML VIAL SLOW IVP PRN (17:15)
[2019-12-18] MEDS ORDERED: Acetaminophen 650 MG Suppository PR PRN (17:15)
[2019-12-18] MEDS ORDERED: Senokot 8.6 MG TAB PO PRN (17:15)
[2019-12-18] MEDS ORDERED: Ondansetron PF 4 MG/2 ML Vial IVP PRN (17:15)
--- NOTE | 2019-12-18 18:49 | DIS ---
DATE OF ADMISSION: 12/18/2019 DATE OF DISCHARGE: 12/18/2019 PRIMARY CARE PHYSICIAN: Lopez Shi DO. DISPOSITION: The patient discharged to inpatient hospice. FINAL DIAGNOSES: Clostridium difficile colitis, toxic megacolon, ischemic bowel disease, metabolic acidosis, urinary tract infection, dehydration, hypotension, acute renal failure. DISCHARGE MEDICATIONS: The patient was discharged to hospice, who will determine ongoing therapy. CODE STATUS: DNR. PENDING AT THE TIME OF DISCHARGE: Nothing. HOSPITAL COURSE: The patient admitted to the [facility] through the emergency room with persistent diarrhea. She was diagnosed with C difficile colitis, post recent antibiotic administration. Her pertinent lab; white cell count 22,900, hemoglobin 9.9, platelet count 251,000. Sodium 134, potassium 4.1, chloride 105, creatinine 0.97, lactic acid 1.2. The patient was started on oral vancomycin, IV metronidazole. Dr. Alonso Brown, Gastroenterology, was consulted. He recommended aggressive fluid resuscitation, replacement of magnesium, potassium, IV albumin if pertinent. On 12/16, I first saw the patient. She was post abdominal pelvis CT. She had worsening proctocolitis, pleural effusions, ascites, probable ileus. She was complaining of abdominal pain, distention. [place] [address], hemoglobin 11.3, sodium 135, BUN 22, creatinine 0.9, potassium 4.1, CO2 of 13. Continue p.o. vancomycin, IV Flagyl, continue fluid resuscitation. Today, she was nonresponsive, agonal respirations. Her creatinine increased to 2.33, CO2 was 9. On electrolytes, white count [place] still [address], hemoglobin 9.3. Family had been approached and this situation was discussed with Dr. Corado. I discussed with Dr. Corado. Diagnosis at that time was marked acidosis due to ischemic bowel. She was DNR. Surgery was considered not an option. Later in the day, the patient met with hospice. The patient was transferred to hospice about 5:[address] Antione Gomez with hospice is currently writing orders. She has been discharged from the Hospitalist Service. Prognosis is dismal. Family aware. Job ID: [id number]
[2019-12-18] MEDS: Morphine 4 MG/ML VIAL SLOW IVP PRN ×2 (19:42→19:43)
[2019-12-19] MEDS: Morphine 4 MG/ML VIAL SLOW IVP PRN ×4 (06:34→16:11)
[2019-12-19] MEDS: Lorazepam 2 MG/ML VIAL SLOW IVP PRN ×3 (14:24→23:32)
[2019-12-19] MEDS: Morphine 10 MG/ML VIAL SLOW IVP PRN ×12 (16:47→23:31)
[2019-12-20] MEDS: Morphine 10 MG/ML VIAL SLOW IVP PRN ×36 (00:09→23:27)
[2019-12-20] MEDS: Morphine 4 MG/ML VIAL SLOW IVP PRN ×3 (08:39→15:22)
[2019-12-20 20:11] VITALS: BP 85/46; TEMP 97.8
[2019-12-20] MEDS: Lorazepam 2 MG/ML VIAL SLOW IVP PRN (22:23)
[2019-12-21] MEDS: Morphine 10 MG/ML VIAL SLOW IVP PRN ×5 (00:04→02:04)
--- NOTE | 2019-12-21 10:43 | PRG ---
DATE OF SERVICE: 12/18/2019 SUBJECTIVE: Ms. Moyer is less responsive. I met with the daughter and answered all her questions. She is extremely tearful the entire time. PHYSICAL EXAMINATION: LUNGS: Clear. HEART: Regular rhythm. ABDOMEN: Very distended. EXTREMITIES: Without asymmetry. There are no therapeutic options that would lead to survival in my opinion. I explained to the family I suspect she will succumb to her colitis. Job ID: [id number]
== END 2019-12-21 02:34 | disposition expired | DRG 951 ==
LOC: CCU 17:02 → ONC 20:51
PROVIDERS: ADMIT Family Medicine; ATTEND Family Medicine
DX: Z51.5 Encounter for palliative care (principal); A04.72 Enterocolitis due to Clostridium difficile, not specified as recurrent; E87.2 Acidosis; N39.0 Urinary tract infection, site not specified; N17.9 Acute kidney failure, unspecified; Z66 Do not resuscitate; Z20.828 Contact with and (suspected) exposure to other viral communicable diseases; I95.9 Hypotension, unspecified; K58.0 Irritable bowel syndrome with diarrhea
CPT/HCPCS: J2060; J2270